=== PATIENT | female | born 1990 | race Asian ===

== ENCOUNTER 2018-07-25 11:53 | Emergency (ER) | payer BC, OTHER ==
[2018-07-25] MEDS ORDERED: ONDANSETRON 4 MG TAB.RAPDIS PO ONE (13:05)
--- NOTE | 2018-07-25 13:08 | ER Document Report ---
ED Medical Screen (RME) - General Chief Complaint: Abdominal Pain Stated Complaint: FLU SYMPTOMS Time Seen by Provider: 07/25/18 12:51 Mode of Arrival: Ambulatory Information source: Patient Notes: Patient presents complaining of tender swollen area to right side of her neck that is starting to worsen. Patient denies any ear pain or dental pain. Patient states she was seen at the urgent care for this but states the symptoms have worsened. Patient does complain of nausea and diarrhea x1 episode. Patient does complain of upper abdominal tenderness and headache. I have greeted and performed a rapid initial assessment of this patient. A comprehensive ED assessment and evaluation of the patient, analysis of test results and completion of the medical decision making process will be conducted by additional ED providers. TRAVEL OUTSIDE OF THE [place] IN LAST 30 DAYS: No - Related Data Allergies/Adverse Reactions: No Known Allergies Allergy (Verified 07/25/18 11:57) Past Medical History Renal/ Medical History: Denies: Hx Peritoneal Dialysis Physical Exam - Vital signs Vitals: Temp Pulse Resp BP Pulse Ox 98.5 F 84 16 132/87 H 99 07/25/18 12:26 07/25/18 12:26 07/25/18 12:26 07/25/18 12:26 07/25/18 12:26 - HEENT Neck: Lymphadenopathy - Swelling to right lateral side of neck mild erythema overlying area Course - Vital Signs Vital signs: Temp Pulse Resp BP Pulse Ox 98.5 F 84 16 132/87 H 99 07/25/18 12:26 07/25/18 12:26 07/25/18 12:26 07/25/18 12:26 07/25/18 12:26 Doctor's Discharge - Discharge Referrals: ELDER IQBAL DO [Primary Care Provider] - Follow up as needed
[2018-07-25 13:53] LABS: ABSOLUTE LYMPHOCYTES (AUTO) 1.3 10^3/uL (0.5-4.7); ABSOLUTE MONOCYTES (AUTO) 0.5 10^3/uL (0.1-1.4); ABSOLUTE NEUT (AUTO) 1.7 10^3/uL (1.7-8.2); BASOPHILS % (AUTO) 0.4 % (0-2); EOSINOPHILS % (AUTO) 0.1 % (0-6); HEMATOCRIT 36.9 % (36.0-47.0); LYMPHOCYTES % (AUTO) 36.1 % (13-45); MEAN CORPUSCULAR HEMOGLOBIN 28.6 pg (27.0-33.4); MEAN CORPUSCULAR HGB CONC 35.3 g/dL (32.0-36.0); MEAN CORPUSCULAR VOLUME 81 fl (80-97); MONOCYTES % (AUTO) 13.7 % (3-13); PLATELET COUNT 242 10^3/uL (150-450); RED BLOOD COUNT 4.55 10^6/uL (3.72-5.28); RED CELL DISTRIBUTION WIDTH 12.3 % (11.5-14.0); SEGMENTED NEUTROPHILS % (AUTO) 49.7 % (42-78); TOTAL CELLS COUNTED % (AUTO) 100 %; WHITE BLOOD COUNT 3.5 10^3/uL (4.0-10.5)
[2018-07-25 14:15] LABS: ALANINE AMINOTRANSFERASE 117 U/L (9-52); ALBUMIN 4.3 g/dL (3.5-5.0); ALKALINE PHOSPHATASE 83 U/L (38-126); ANION GAP 11 (5-19); ASPARTATE AMINO TRANSFERASE 64 U/L (14-36); BILIRUBIN,DIRECT 0.2 mg/dL (0.0-0.4); BILIRUBIN,TOTAL 0.4 mg/dL (0.2-1.3); BLOOD UREA NITROGEN 15 mg/dL (7-20); CARBON DIOXIDE 26 mmol/L (22-30); CHLORIDE 106 mmol/L (98-107); GLUCOSE 75 mg/dL (75-110); POTASSIUM 3.8 mmol/L (3.6-5.0); SODIUM 142.5 mmol/L (137-145)
--- NOTE | 2018-07-25 14:30 | ER Document Report ---
HPI - HPI Patient complains to provider of: right lymphadenopathy Onset: Other Onset/Duration: Worse - Monday Quality of pain: Achy Severity: Moderate Pain Level: 4 Context: 28-year-old female presented to ED for complaint of lymphadenopathy to the right side of her neck posterior cervical chain since last week. She still her primary care doct and a started her on Augmentin for a "sinus infection. Patient states she was not having sinus symptoms. Patient states the antibiotics have not helped the swelling to her lymph nodes on the right lateral cervical chain. Patient states she called her doctor today and they told her to come to the emergency room. Associated Symptoms: Other - Right-sided posterior cervical chain lymphadenopathy Exacerbated by: Denies Relieved by: Denies Similar symptoms previously: Yes Recently seen / treated by doctor: Yes - ROS ROS below otherwise negative: Yes - CONSTITUTIONAL Constitutional: DENIES: Fever, Chills - EENT Notes: Right posterior cervical chain lymphadenopathy - NEURO Neurology: REPORTS: Headache - CARDIOVASCULAR Cardiovascular: DENIES: Chest pain - RESPIRATORY Respiratory: DENIES: Trouble Breathing, Coughing - GASTROINTESTINAL Gastrointestinal: REPORTS: Abdominal Pain, Nausea. DENIES: Patient vomiting, Diarrhea, Constipation, Black / Bloody Stools - URINARY Urinary: DENIES: Dysuria, Urgency, Frequency - REPRODUCTIVE Reproductive: DENIES: :, Postmenopausal, Abnormal bleeding / discharge - MUSCULOSKELETAL Musculoskeletal: DENIES: Extremity pain, Back Pain, Neck Pain, Swelling - DERM Skin Color: Normal Skin Problems: None Past Medical History - General Information source: Patient - Social History Smoking Status: Current Some Day Smoker Cigarette use (# per day): Yes - Cigarette a week Chew tobacco use (# tins/day): No Smoking Education Provided: Yes - 4 minutes Frequency of alcohol use: Occasional Drug Abuse: None Occupation: Supervisor [employer] Lives with: Family Family History: Reviewed & Not Pertinent Patient has suicidal ideation: No Patient has homicidal ideation: No - Past Medical History Cardiac Medical History: Reports: Hx Hypertension Pulmonary Medical History: Reports: None EENT Medical History: Reports: None Neurological Medical History: Reports: None Endocrine Medical History: Reports: None Renal/ Medical History: Reports: None Malignancy Medical History: Reports: None GI Medical History: Reports: None Musculoskeletal Medical History: Reports None Skin Medical History: Reports None Psychiatric Medical History: Reports: None Traumatic Medical History: Reports: None Infectious Medical History: Reports: None Past Surgical History: Reports: Hx Section - Immunizations Immunizations up to date: Yes Hx Diphtheria, Pertussis, Tetanus Vaccination: Yes Vertical Provider Document - CONSTITUTIONAL Agree With Documented VS: Yes Exam Limitations: No Limitations General Appearance: WD/WN, No Apparent Distress - INFECTION CONTROL TRAVEL OUTSIDE OF THE [place] IN LAST 30 DAYS: No - HEENT HEENT: Atraumatic, Normocephalic, PERRLA. negative: Normal ENT Exam Notes: Swollen red nasal turbinates. Right posterior cervical chain lymphadenopathy - NECK Neck: Lymphadenopathy-Right - Posterior cervical chain - RESPIRATORY Respiratory: Breath Sounds Normal, No Respiratory Distress - CARDIOVASCULAR Cardiovascular: Regular Rate, Regular Rhythm, No Murmur - GI/ABDOMEN Gastrointestinal: Abdomen Soft, No Organomegaly, Normal Bowel Sounds - BACK Back: Normal Inspection - MUSCULOSKELETAL/EXTREMETIES Musculoskeletal/Extremeties: MAEW, FROM, Non-Tender - NEURO Level of Consciousness: Awake, Alert, Appropriate - DERM Integumentary: Warm, Dry, No Rash Course - Vital Signs Vital signs: Temp Pulse Resp BP Pulse Ox 98.5 F 84 16 132/87 H 99 07/25/18 12:26 07/25/18 12:26 07/25/18 12:26 07/25/18 12:26 07/25/18 12:26 - Laboratory Result Diagrams: 07/25/18 13:30 07/25/18 13:30 Laboratory results interpreted by me: 07/25/18 07/25/18 13:30 13:30 WBC 3.5 L Monocytes % 13.7 H AST 64 H ALT 117 H - Diagnostic Test Radiology reviewed: Image reviewed, Reports reviewed Discharge - Discharge Clinical Impression: Lymphadenopathy of right cervical region Condition: Stable Disposition: HOME, SELF-CARE Instructions: Family Physicians / Practices Additional Instructions: Lymphadenopathy You have enlargement of lymph glands, called lymphadenopathy. Lymph glands filter tissue fluids. They help to fight infection. Most of the time, enlarged lymph glands are not serious. Lymph glands may react to a viral or bacterial infection by becoming swollen and painful. When the infection goes away, the glands shrink. Sometimes a lymph gland will remain enlarged for a long time after an infection. Occasionally, a lymph gland may be overwhelmed by infection and form an abscess. If an enlarged lymph gland has signs that are suspicious for tumor, the doctor will recommend a biopsy. A suspicious gland usually is NOT painful, grows very slowly, and is rock-hard to touch. See the doctor or return if there is increasing swelling and redness, high fever, difficulty breathing, or any other change for the worse. Continue your antibiotics as prescribed. You will need to follow-up with her primary doctor to have this monitored to ensure that it does reduce itself. If this is not started down within the next 7 days you will need to have a surgical consult for a biopsy of the lymph node Your ultrasound shows enlargement of the lymph nodes in the area in question. Monospot was negative. Acetaminophen Acetaminophen may be taken for pain relief or fever control. It's much safer than aspirin, offering a wider range of "safe" dosages. It is safe during . Some brand names are Tylenol, Panadol, Datril, Anacin 3, Tempra, and Liquiprin. Acetaminophen can be repeated every four hours. The following are maximum recommended dosages: WEIGHT Dose Drops Elixir Chewable( 80mg) (LBS.) drprs=droppers tsp=teaspoon 6 40 mg .4 ml (1/2) 6-11 80 mg .8 ml (full) 1/2 tsp 1 tab 12-16 120 mg 1 1/2 drprs 3/4 tsp 1 1/2 tabs 17-23 160 mg 2 drprs 1 tsp 2 tabs 24-30 240 mg 3 drprs 1 1/2 tsp 3 tabs 30-35 320 mg 2 tsp 4 tabs 36-41 360 mg 2 1/4 tsp 4 1 /2 tabs 42-47 400 mg 2 1/2 tsp 5 tabs 48-53 480 mg 3 tsp 6 tabs 54-59 520 mg 3 1/4 tsp 6 1 /2 tabs 60-64 560 mg 3 1/2 tsp 7 tabs 65-70 600 mg 3 3/4 tsp 7 1 /2 tabs 71-76 640 mg 4 tsp 8 tabs 77-82 720 mg 4 1/2 tsp 9 tabs 83-88 800 mg 5 tsp 10 tabs >89 pounds or adults 650 mg to 900 mg Acetaminophen can be repeated every four hours. Maximum daily dose not to exceed 4000 mg. These maximum recommended dosages are slightly higher than the dosages written on the product container, but these dosages are very safe and well below the toxic dosage for acetaminophen. Ibuprofen Ibuprofen is an excellent, safe drug for pain control. In addition, it has potent antiinflammatory effects which are beneficial, especially in the treatment of injuries, arthritis, or tendonitis. It's best to take ibuprofen with food. Persons with ulcer disease or allergy to aspirin should notify their physician of this before taking ibuprofen. Take the medication exactly as prescribed. Don't take additional doses unless instructed to do so by your doctor. If you develop wheezing, shortness of breath, hives, faintness, stomach pain, vomiting, or dark black stools, return for re-evaluation at once. FOLLOW-UP CARE: If you have been referred to a physician for follow-up care, call the physician s office for an appointment as you were instructed or within the next two days. If you experience worsening or a significant change in your symptoms, notify the physician immediately or return to the Emergency Department at any time for re-evaluation. Forms: Elevated Blood Pressure, Smoking Cessation Education, Return to Work Referrals: ELDER IQBAL DO [NO LOCAL MD] - Follow up as needed [facility] [Provider Group] - Follow up as needed
--- NOTE | 2018-07-25 14:48 | RADIOLOGY REPORT (SQ) ---
EXAM DESCRIPTION: U/S THYROID/SFT TISS HD NECK COMPLETED DATE/TIME: 07/25/2018 2:33 pm REASON FOR STUDY: pain/swelling r side neck COMPARISON: None. TECHNIQUE: Dynamic and static pak-scale images acquired of the thyroid gland. Selected additional c olor/power Doppler images recorded. All images stored to PACS. LIMITATIONS: None. FINDINGS: Sonographic imaging of the area of concern in the right posterior neck region shows a clus ter hypoechoic densities in the area of concern. The largest measures 1.6 cm in long axis. There is some adjacent blood flow, but there is no Doppler flow in these hypoechoic areas. IMPRESSION: There may be a cluster of lymph nodes in the area of concern. Vascular malformation is less likely. Consider CT with contrast. TECHNICAL DOCUMENTATION: JOB ID: [id number] [employer]- All Rights Reserved Reading location - IP/workstation name: [email or web address]
[2018-07-25 15:57] VITALS: BP 129/88
== END 2018-07-25 15:57 | disposition home or self-care (01) ==
LOC: ER 11:53
DX: R59.1 Generalized enlarged lymph nodes (principal); F17.210 Nicotine dependence, cigarettes, uncomplicated; I10 Essential (primary) hypertension
CPT/HCPCS: 99284; 36415; 83690; 84703; 85025; 86308; 80053; 76536; S0119

== ENCOUNTER → 2018-08-01 | Outpatient (CLI) | payer OTHER ==
[2018-08-04 17:14] LABS: EPSTEIN BARR EARLY AG IGG AB <9.0 U/mL (0.0-8.9); EPSTEIN BARR NUCLEAR AG IGG AB >600.0 U/mL (0.0-17.9); EPSTEIN BARR VCA IGM AB <36.0 U/mL (0.0-35.9); ROCKY MTN SPOTTED FEV IGG EIA Negative (Negative); ROCKY MTN SPOTTED FEVER IGM AB 0.23 index (0.00-0.89)
[2018-08-06 18:41] LABS: CMV DNA PCR QUANT Negative (Negative)
== END ==
LOC: OD 16:12
PROVIDERS: ATTEND Surgery
DX: R59.0 Localized enlarged lymph nodes (principal)
CPT/HCPCS: 36415; 86256; 86663; 86664; 86665; 86757; 87496

== ENCOUNTER 2018-08-16 21:33 | Emergency (ER) | payer OTHER ==
[2018-08-16] MEDS ORDERED: KETOROLAC TROMETHAMINE INJ/PF 30 MG/1 ML SDV IV ONE (22:10)
[2018-08-16] MEDS ORDERED: NORMAL SALINE 1000 ML 1,000 ML IV ONE (22:10)
--- NOTE | 2018-08-16 22:12 | ER Document Report ---
ED General - General Chief Complaint: Leg Pain Stated Complaint: LEG/BACK PAIN Time Seen by Provider: 08/16/18 21:54 Notes: Patient is a 28-year-old female that comes to the emergency department for chief complaint of flank pain, abdominal pain, intermittent sensation of tingling in her arms and legs. She states that for the past 2 days she felt unwell and she had multiple episodes of vomiting and she was running fevers. She states she is also constipated and had a harder bowel movement earlier. She denies any particular area of abdominal pain. She denies upper back pain, numbness, dysuria, vaginal discharge or bleeding. She is on oral contraceptive , hypertension medication. She has had a . She denies smoking, alcohol, recreational drugs. She denies recent travel, she denies any obvious sick contacts. TRAVEL OUTSIDE OF THE [place] IN LAST 30 DAYS: No - Related Data Allergies/Adverse Reactions: No Known Allergies Allergy (Verified 07/25/18 11:57) Past Medical History - General Information source: Patient - Social History Smoking Status: Never Smoker Frequency of alcohol use: None Drug Abuse: None Lives with: Family Family History: Reviewed & Not Pertinent - Past Medical History Cardiac Medical History: Reports: Hx Hypertension Renal/ Medical History: Denies: Hx Peritoneal Dialysis Past Surgical History: Reports: Hx Section - Immunizations Immunizations up to date: Yes Hx Diphtheria, Pertussis, Tetanus Vaccination: Yes Review of Systems - Review of Systems Constitutional: See HPI EENT: No symptoms reported Cardiovascular: No symptoms reported Respiratory: No symptoms reported Gastrointestinal: See HPI Genitourinary: See HPI Female Genitourinary: No symptoms reported Musculoskeletal: See HPI Skin: No symptoms reported Hematologic/Lymphatic: No symptoms reported Neurological/Psychological: No symptoms reported Physical Exam - Vital signs Vitals: Temp Pulse Resp BP Pulse Ox 98.6 F 98 24 H 117/75 100 08/16/18 21:40 08/16/18 21:40 08/16/18 21:40 08/16/18 21:40 08/16/18 21:40 - Notes Notes: GENERAL: Intermittently patient looks mildly uncomfortable and then this resolves and she is talkative, alert, and well-appearing. HEAD: Normocephalic, atraumatic. EYES: Pupils equal, round, and reactive to light. Extraocular movements intact. ENT: Oral mucosa moist, tongue midline. Oropharynx unremarkable. Airway patent. Nares patent, no nasal septal hematoma, TM's intact. NECK: Full range of motion. Supple. Trachea midline. LUNGS: Clear to auscultation bilaterally, no wheezes, rales, or rhonchi. No respiratory distress. HEART: Regular rate and rhythm. No murmur ABDOMEN: Tender with wincing with palpation of the upper abdomen. Mild generalized abdominal pain in both lower quadrants, nonspecific, no guarding, no noted distention, no rebound tenderness. GENITOURINARY: Deferred EXTREMITIES: Moves all 4 extremities spontaneously. No edema, normal radial and dorsalis pedis pulses bilaterally. No cyanosis. BACK: no cervical, thoracic, lumbar midline tenderness. There is mild bilateral paraspinal tenderness over the thoracic and lumbar areas, worse on the right. No saddle anesthesia, normal distal neurovascular exam. NEUROLOGICAL: Alert and oriented x3. Normal speech. [cranial nerves II through XII grossly intact]. PSYCH: Normal affect, normal mood. SKIN: Warm, dry, normal turgor. No rashes or lesions noted. Course - Re-evaluation Re-evalutation: Patient initially mildly uncomfortable, she was given some pain medication, after the symptoms resolved. She does have some discomfort in the upper abdomen and very mild discomfort generally but no guarding, rigidity, or rebound tenderness. CBC shows leukopenia with white blood cell count of 1.6, previous was 3.5. Patient states she was aware of this and was followed with primary care over the past 2 weeks in regards to this. Liver enzymes are trending upwards as well. Bilirubin and lipase are normal. Ultrasound of the upper abdomen without any acute findings. Discussed with patient in detail. Denies IV drug abuse or any exposures. After discussion she is still very agreeable with having HIV and hepatitis testing. Patient was discussed with Dr. Pop. At this time it is clear patient will need close follow-up, probably hematology referral, and has an underlying undiagnosed condition, however at this time there does not appear to be any emergent pathology. Patient was provided with her lab and imaging reports, she states she has close follow-up and she will be seen either tomorrow or Monday. Discussed return precautions in detail. Patient states understanding and agreement. - Vital Signs Vital signs: Temp Pulse Resp BP Pulse Ox 98.3 F 83 18 118/69 100 11/09/18 01:59 08/17/18 01:59 08/17/18 01:59 08/17/18 01:59 08/17/18 01:59 - Laboratory Result Diagrams: 08/16/18 22:30 08/16/18 22:30 Laboratory results interpreted by me: 08/16/18 08/16/18 22:30 22:30 WBC 1.6 L Hgb 11.6 L Hct 32.5 L Abs Neuts (Manual) 1.0 L Abs Lymphs (Manual) 0.4 L Glucose 117 H AST 221 H ALT 265 H Discharge - Discharge Clinical Impression: Flank pain, Body aches, Paresthesias, Elevated liver enzymes Abdominal pain Qualifiers: Abdominal location: generalized Qualified Code(s): R10.84 - Generalized abdominal pain Leukopenia Qualifiers: Leukopenia type: unspecified Qualified Code(s): D72.819 - Decreased white blood cell count, unspecified Condition: Stable Disposition: HOME, SELF-CARE Instructions: Oral Narcotic Medication ([facility]) Additional Instructions: Your evaluation in the emergency department does not indicate the obvious cause of your low white blood cells, elevated liver function tests, and symptoms. This will need to be followed. I recommend close follow-up with primary care for additional evaluation, you may also need to be seen by the drill press hand, see the referral listed below. We have hepatitis profile pending, these results will be available over the next several days to around a week. Take the medication provided as prescribed if needed (for pain or nausea). Return for any concerning symptoms including severe pain, fever of 100.4 or greater, returned or uncontrolled vomiting, difficulty breathing, or any other concerning symptoms. Prescriptions: Ketorolac Tromethamine [Toradol 10 mg Tablet] 10 mg PO Q8HP PRN #24 tablet PRN Reason: Promethazine HCl [Phenergan 25 mg Tablet] 25 mg PO Q6H PRN #15 tablet PRN Reason: Referrals: MARINO WAY MD [ACTIVE STAFF] - Follow up as needed MOSES MENDOZA FNP [NURSE PRACTITIONER] - Follow up tomorrow
[2018-08-16 22:57] LABS: HEMATOCRIT 32.5 % (36.0-47.0); HEMOGLOBIN 11.6 g/dL (12.0-15.5); MEAN CORPUSCULAR HEMOGLOBIN 28.9 pg (27.0-33.4); MEAN CORPUSCULAR HGB CONC 35.8 g/dL (32.0-36.0); MEAN CORPUSCULAR VOLUME 81 fl (80-97); PLATELET COUNT 157 10^3/uL (150-450); RED BLOOD COUNT 4.03 10^6/uL (3.72-5.28); RED CELL DISTRIBUTION WIDTH 12.5 % (11.5-14.0)
[2018-08-16 22:58] LABS: APPEARANCE,URINE CLEAR; BILIRUBIN,URINE NEGATIVE (NEGATIVE); COLOR,URINE YELLOW; GLUCOSE, URINE NEGATIVE (NEGATIVE); KETONES,URINE NEGATIVE (NEGATIVE); LEUKOCYTE ESTERASE,URINE NEGATIVE (NEGATIVE); NITRITE,URINE NEGATIVE (NEGATIVE); PROTEIN,URINE NEGATIVE (NEGATIVE); URINE SPECIFIC GRAVITY 1.019; UROBILINOGEN,URINE NEGATIVE mg/dL (<2.0)
[2018-08-16 23:10] LABS: ALANINE AMINOTRANSFERASE 265 U/L (9-52); ALBUMIN 3.7 g/dL (3.5-5.0); ALKALINE PHOSPHATASE 88 U/L (38-126); ANION GAP 11 (5-19); ASPARTATE AMINO TRANSFERASE 221 U/L (14-36); BILIRUBIN,DIRECT 0.2 mg/dL (0.0-0.4); BILIRUBIN,TOTAL 0.4 mg/dL (0.2-1.3); BLOOD UREA NITROGEN 12 mg/dL (7-20); CALCIUM 8.5 mg/dL (8.4-10.2); CARBON DIOXIDE 24 mmol/L (22-30); CHLORIDE 104 mmol/L (98-107); GLUCOSE 117 mg/dL (75-110); POTASSIUM 3.8 mmol/L (3.6-5.0); SODIUM 139.2 mmol/L (137-145)
[2018-08-16 23:12] LABS: ABSOLUTE LYMPHOCYTES# (MANUAL) 0.4 10^3/uL (0.5-4.7); ABSOLUTE MONOCYTES # (MANUAL) 0.2 10^3/uL (0.1-1.4); BASOPHILS % (MANUAL) 0 % (0-2); EOSINOPHILS % (MANUAL) 0 % (0-6); LYMPHOCYTES % (MANUAL) 26 % (13-45); MONOCYTES % (MANUAL) 10 % (3-13); SEGMENTED NEUTROPHILS % (MAN) 64 % (42-78); TOTAL CELLS COUNTED 50
[2018-08-16 23:13] LABS: PLATELET COMMENT ADEQUATE; PLATELET LARGE PRESENT
[2018-08-16 23:14] LABS: OVALOCYTES SLIGHT; POIKILOCYTOSIS SLIGHT
[2018-08-16 23:15] LABS: HYPOCHROMASIA 1+
[2018-08-16 23:18] LABS: WHITE BLOOD COUNT 1.6 10^3/uL (4.0-10.5)
[2018-08-16] MEDS ORDERED: ONDANSETRON HCL INJ/PF 4 MG/2 ML SDV IV ONE (23:20)
[2018-08-16] MEDS ORDERED: MORPHINE SULFATE 10 MG/ML INJ IV ONE (23:20)
--- NOTE | 2018-08-17 01:00 | RADIOLOGY REPORT (SQ) ---
US ABDOMEN LIMITED HISTORY: Right upper quadrant pain. COMPARISON: None. TECHNIQUE: Grayscale and color Doppler imaging of the right upper quadrant was performed. FINDINGS: The liver measures 11.7 cm. Normal liver echogenicity. No shadowing gallstones are seen. No pericholecystic fluid or gallbladder wall thickening. Common bile duct measures 3 mm. Visualized pancreas is unremarkable. Right kidney measures 10 cm in length, without hydronephrosis. Visualized portions of the IVC and aorta are patent. IMPRESSION: No cholelithiasis or acute cholecystitis.
[2018-08-17] MEDS ORDERED: HYDROCODONE/ACETAMINOPHEN 5-325 MG (6 TAB/ER DISP) PO PRN (01:24)
[2018-08-17 02:00] VITALS: BP 118/69
[2018-08-18 05:41] LABS: HEPATITIS A AB IGM Negative (Negative); HEPATITIS B CORE AB IGM Negative (Negative); HEPATITS B SURFACE ANTIGEN Negative (Negative)
[2018-08-18 11:20] LABS: HEPATITIS C VIRUS ANTIBODY <0.1 s/co ratio (0.0-0.9)
== END 2018-08-17 02:00 | disposition home or self-care (01) ==
LOC: ER 21:33
DX: M79.10 Myalgia, unspecified site (principal); R20.2 Paresthesia of skin; R74.8 Abnormal levels of other serum enzymes; R10.84 Generalized abdominal pain; D72.819 Decreased white blood cell count, unspecified
CPT/HCPCS: 99284; 96361; 96374; 96375; 36415; 83690; 85025; 81025; 80053; 81001; 86701; 80074; 76705; J1885; J2270; J2405; J7030